=== PATIENT | female | born 1995 | race Caucasian/White ===

== ENCOUNTER 2016-12-13 10:10 | Observation (INO) ==
[2016-12-13] MEDS ORDERED: Ringers Solution, Lactated 1,000 ML IVC SCH (11:00)
[2016-12-13 11:02] LABS: Basophils % 0.2 %; Eosinophils # 0.1 K/mcL (0.0-0.6); Eosinophils % 1.2 %; Hematocrit 40.6 % (35.3-44.9); Hemoglobin 12.9 g/dL (11.5-15.4); Immature Granulocytes % 0.3 % (0-4); Lymphocytes # 1.5 K/mcL (0.6-4.6); Lymphocytes % 25.4 %; Mean Corpuscular HGB Conc 31.8 g/dL (31.6-35.5); Mean Corpuscular Hemoglobin 29.3 pg (28.0-33.3); Mean Corpuscular Volume 92.3 fL (83.0-100.0); Mean Platelet Volume 11.6 fL (9.4-12.4); Monocytes # 0.5 K/mcL (0.0-1.3); Monocytes % 8.1 %; Neutrophils # 3.9 K/mcL (1.6-8.9); Platelet Count 199 K/mcL (140-400); Segmented Neutrophils % 64.8 %
--- NOTE | 2016-12-13 11:47 | Anesthesia Evaluation PreOp ---
Date of Encounter: 12/13/16 Time of Encounter: 11:45 - Past History Planned Operation: D&C Cardiac History: Denies any Significant Hx Pulmonary History: Smoker, Pack/yr (1ppd) HAND LOOM WEAVER History: Denies Any Significant HX Other Medical History: Denies Any Significant HX Anesthesia History: No Prior Anesthetic Complications, Past Anesthesia (lymph node biopsy left axilla) : Yes Alcohol Use: rarely Drug use: none Medications and Allergies Sulfamethoxazole/Trimeth DS [Bactrim DS] 1 each PO BID #20 tablet 09/24/16 [Rx] Allergies No Known Allergies Allergy (Verified 09/24/16 20:13) - Meds/Allergy Pre-op Review Medications Reviewed: Yes Allergies Reviewed: Yes Beta Blockers on Current Med List: No Anesthesia Results - Labs 12/13/16 10:44 Selected Entries 12/13/16 10:48 Temperature 98.5 F Pulse Rate 88 Respiratory Rate 14 Blood Pressure 122/59 Laboratory Tests 12/08/16 12/13/16 14:11 10:44 Hgb 12.9 Hct 40.6 Plt Count 199 Sodium 138 Potassium 4.0 BUN 5 L Creatinine 0.75 Anesthesia Exam Selected Entries 12/13/16 10:48 Temperature 98.5 F Pulse Rate 88 Respiratory Rate 14 Blood Pressure 122/59 Weight: 128kg NPO (# of Hours): 8 Pain Scale: 0 Pain Scale Used: Numeric (1 - 10) - HEENT Pupil (Motor): EOMI Mallampati: II Teeth: Normal Oral Opening: Greater than 3 - HAND LOOM WEAVER LOC: Oriented HAND LOOM WEAVER Motor: Normal RUE, Normal LUE, Normal RLE, Normal LLE, Normal Face HAND LOOM WEAVER Sensory: Normal: RUE, LUE, RLE, LLE, Face - Cardiac Rhythm: Regular Murmur: None - Pulmonary Breath Sounds: bilateral Clear Respiratory Effort: Symmetrical - Additional Findings has ear stud in left ear, patient won't remove and will sign wavier Anesthesia Assess/Plan ASA Score: 2 Modified Spring Scale for Level of Consciousness: Cooperative, oriented, and tranquil Anesthetic Plan: General Monitoring Plan: Standard Monitors Recovery Plan: PACU (Discussed risks of GA, questions answered and agrees to proceed.)
--- NOTE | 2016-12-13 12:25 | OB/GYN History & Physical ---
Date of Encounter: 12/13/16 Time of Encounter: 12:23 Assessment and Plan (1) Incomplete Current visit: Yes Status: Acute D/w pt tx options and will proceed with suction d&c. Questions answered and consent obtained. History of Present Illness Chief complaint: Incomplete HPI: Ms. Daigle is a 21 year old female female seen Friday and ' with incomplete . She was having heavy bleeding and had collapsing gest sac. She has continued to have bleeding. She denies fever or chills. Past Med Surg Social Fam HX - Past Medical History Source: patient Medical history: asthma Psychiatric history: no psych history - Social History Smoking Status: Current every day smoker Smokeless Tobacco Status: No Alcohol use: rarely Drug use: none - Family History Mother History Unknown: Yes Living Status: Still Living Obstetrical History - Pregnancies : 1 Medications and Allergies Sulfamethoxazole/Trimeth DS [Bactrim DS] 1 each PO BID #20 tablet 09/24/16 [Rx] Allergies No Known Allergies Allergy (Verified 09/24/16 20:13) Exam - Vital Signs Vital signs: Initial Vital Signs Temp Pulse Resp BP 98.5 F 88 14 122/59 12/13/16 10:48 12/13/16 10:48 12/13/16 10:48 12/13/16 10:48 - Constitutional Constitutional: well developed - HEENT HEENT: EOMI, PERRL - Neck Neck exam: full ROM - Lungs Respiratory exam: CTAB - Cardiovascular Cardiovascular exam: RRR - Extremities Extremities exam: full ROM Deep Tendon Reflex Grade: 2+ Normal Results Result Diagrams: 12/13/16 10:44 All other labs normal.
[2016-12-13] MEDS ORDERED: *HR* Propofol 200 MG/20 ML VIAL IVP ONE (12:32)
[2016-12-13] MEDS ORDERED: *HR* FentaNYL (PF) 100 MCG/2 ML VIAL ONE (12:32)
[2016-12-13] MEDS ORDERED: *HR* Midazolam HCl 2 MG/2 ML VIAL ONE (12:32)
[2016-12-13] MEDS ORDERED: Lidocaine -MPF 2% 5 ML VIAL INFILT ONE (12:33)
[2016-12-13] MEDS ORDERED: Ondansetron 4 MG/2 ML VIAL ONE (12:33)
[2016-12-13] MEDS ORDERED: Dexamethasone 4 MG/ML VIAL ONE (12:33)
--- NOTE | 2016-12-13 12:33 | Discharge Summary ---
Outpatient Proc Discharge Plan - Plan Prescriptions: Ibuprofen [Motrin] 600 mg PO Q6HR PRN #40 tab PRN Reason: post op pain HYDROcodone/Acet 5/325 mg [Deputy 5-325 mg] 1 tab PO Q6H PRN #15 tab PRN Reason: Post op pain Home Medications: Sulfamethoxazole/Trimeth DS [Bactrim DS] 1 each PO BID #20 tablet 09/24/16 [Rx] HYDROcodone/Acet 5/325 mg [Deputy 5-325 mg] 1 tab PO Q6H PRN #15 tab 12/13/16 [Rx ] Ibuprofen [Motrin] 600 mg PO Q6HR PRN #40 tab 12/13/16 [Rx]
--- NOTE | 2016-12-13 13:15 | OB/GYN Procedure Note ---
Suction D&C - Diagnosis Date of procedure: 12/13/16 Pre-op diagnosis: incomplete Post-op diagnosis: same - Procedure Procedure: suction D&C Surgeon: Deejay Turner Anesthesia Type: General Estimated blood loss (cc): 20 Complications: none Fluids: crystalloid Specimen: products of conception Disposition: PACU Narrative: Pt was taken to OR where general anesthesia was given. She was then prepped and draped in usual sterile fashion and bladder was drained of clear urine. Cvx was grasped with single tooth tenaculum. Cervix was dilated to largest size hanks dilator. 8mm suction curret was passed several times revealing typical POC. Gentle sharp curretage was performed revealing smooth uterine cavity. Suction currete was passed again reveling minimal tissue. Tenaculum was removed and hemostasis was assured. All counts were correct. Pt was awakened and taken to RR in good condition.
[2016-12-13] MEDS ORDERED: Ondansetron 4 MG/2 ML VIAL IVP ONE (13:25)
[2016-12-13] MEDS ORDERED: *HR* Morphine 2 MG/ML SYRINGE IVP PRN (13:25)
[2016-12-13 14:19] VITALS: BP 119/84
== END 2016-12-13 14:40 | disposition home or self-care (01) ==
LOC: 1NENULAB 10:10 → SAMDAY 10:10 → 1NENULAB 11:14
PROVIDERS: ADMIT Obstetrics & Gynecology; ATTEND Obstetrics & Gynecology